=== PATIENT | male | born 1965 | race Caucasian/White ===

== ENCOUNTER 2021-11-01 21:06 | Observation (INO) | payer OTHER ==
[2021-11-01 21:57] LABS: #Eosinphils 0.2 10x3/uL (0.0-0.5); #Monocytes 0.7 10x3/uL (0.0-1.1); #Neutrophils 5.2 10x3/uL (1.5-8.4); %Basophils 0.5 % (0.0-2.0); %Eosinophils 2.3 % (0.0-6.0); %Lymphocytes 26.8 % (18.0-47.0); %Monocytes 8.3 % (0.0-10.0); %Neutrophils 61.9 % (40.0-75.0); Hemoglobin 11.7 g/dL (13.5-17.5); Mean Corpuscular HGB CONC 32.6 g/dL (32.0-36.0); Mean Corpuscular Hemoglobin 28.5 pg (27.0-33.0); Mean Corpuscular Volume 87.3 fl (81.2-95.1); Mean Platelet Volume 8.5 fl (7.4-10.4); Platelet Count 261 10x3/uL (150-450); RBC Distribution Width 13.5 % (11.5-14.5); Red Blood Cell (RBC) Count 4.11 10x6/uL (4.32-5.72); White Blood Cell (WBC) Count 8.4 10x3/uL (3.5-10.5)
[2021-11-01 22:05] LABS: ALT (SGPT) 19 U/L (8-55); AST (SGOT) 24 U/L (5-34); Albumin 3.9 g/dL (3.5-5.0); Alkaline Phosphatase 73 U/L (40-110); Anion Gap 12 mmol/L (10-20); BUN (Urea Nitrogen) 18 mg/dL (8.4-25.7); Bilirubin, Total 0.4 mg/dL (0.2-1.2); Calc. Creatinine Clearance 0 mL/min (70-130); Calcium 8.8 mg/dL (7.8-10.44); Carbon Dioxide 31 mmol/L (22-29); Chloride 98 mmol/L (98-107); Globulin 2.5 g/dL (2.4-3.5); Glucose 109 mg/dL (70-105); Magnesium 1.8 mg/dL (1.6-2.6); Protein, Total 6.4 g/dL (6.0-8.3); Sodium 138 mmol/L (136-145)
[2021-11-01] MEDS ORDERED: Aspirin 325 MG TAB ONE (22:17)
[2021-11-01 22:41] LABS: Bilirubin Neg (Negative); Blood, Urine Negative (Negative); Clarity Clear (Clear); Glucose, Urine (Dipstick) Normal (Negative); Ketone, Urine Negative (Negative); Leukocyte 25 (Negative); Nitrite Negative (Negative); Protein, Urine (Dipstick) Negative (Neg-Trace); Specific Gravity, Urine 1.005 (1.002-1.036)
[2021-11-01 22:52] LABS: Bacteria/HPF None Seen HPF (None Seen); RBC/HPF 0-3 HPF (0-3); Squamous Epithelial 0-3 HPF (0-3); WBC/HPF 0-3 HPF (0-3)
[2021-11-02] MEDS ORDERED: Calcium Carbonate 500 MG ChewTAB PO PRN (00:08)
[2021-11-02] MEDS ORDERED: Senokot S 8.6-50 MG TAB PO PRN (00:08)
[2021-11-02] MEDS ORDERED: Acetaminophen 325 MG TAB PO PRN (00:08)
[2021-11-02] MEDS ORDERED: Zolpidem Tartrate 5 MG TAB PO PRN (00:08)
[2021-11-02] MEDS ORDERED: Ondansetron PF 4 MG/2 ML Vial IVP PRN (00:08)
[2021-11-02] MEDS ORDERED: Potassium Chloride 20 MEQ TAB PO SCH ×2 (00:30→02:00)
[2021-11-02] MEDS ORDERED: Potassium Chloride 20 MEQ in Premix Bag 1 BAG IVPB SCH ×2 (00:30→02:00)
[2021-11-02 01:47] VITALS: BMI 41.8
[2021-11-02] MEDS ORDERED: Potassium Chloride 20 MEQ/100 ML PREMIX BAG ONE ×2 (02:05→02:06)
[2021-11-02 05:00] LABS: Anion Gap 11 mmol/L (10-20); BUN (Urea Nitrogen) 19 mg/dL (8.4-25.7); Calc. Creatinine Clearance 142 mL/min (70-130); Calcium 8.7 mg/dL (7.8-10.44); Carbon Dioxide 32 mmol/L (22-29); Cardiac Risk 3.3 (Less than 4.5); Chloride 101 mmol/L (98-107); Cholesterol 134 mg/dl (< 200 Desired); Glucose 119 mg/dL (70-105); HDL Cholesterol 41 mg/dL (>60 Neg Risk); LDL Cholesterol, Calculated 68 mg/dL; Magnesium 1.9 mg/dL (1.6-2.6); Potassium 3.2 mmol/L (3.5-5.1); Sodium 141 mmol/L (136-145); Triglycerides 124 mg/dL (Less than 150)
[2021-11-02] MEDS ORDERED: Levothyroxine Sodium 75 MCG TAB PO SCH (06:00)
[2021-11-02] MEDS ORDERED: Gabapentin 300 MG CAP PO SCH (09:00)
[2021-11-02] MEDS ORDERED: Potassium Chloride 10 MEQ TAB PO SCH (09:00)
[2021-11-02] MEDS ORDERED: Venlafaxine HCl XR 75 MG CAP PO SCH (09:00)
[2021-11-02] MEDS ORDERED: Oxybutynin ER 5 MG TAB PO SCH (09:00)
[2021-11-02] MEDS ORDERED: Aspirin 81 mg Enteric Coated Tablet PO SCH (09:00)
[2021-11-02] MEDS ORDERED: Enoxaparin Sodium 40 MG/0.4 ML SYRINGE SC SCH (09:00)
[2021-11-02] MEDS ORDERED: OXcarbazepine 300 MG TAB PO SCH (09:00)
[2021-11-02] MEDS ORDERED: Clopidogrel Bisulfate 75 MG TAB PO SCH (09:00)
[2021-11-02 11:18] VITALS: TEMP 98.7
[2021-11-02 13:02] LABS: Hemoglobin A1c 5.8 % (4.0-6.0)
[2021-11-02 13:10] VITALS: BP 143/87
[2021-11-02] MEDS ORDERED: Atorvastatin Calcium 40 MG TAB PO SCH (21:00)
[2021-11-03 02:55] LABS: SARS-CoV-2 PCR by NAA Not Detected (NotDetected)
== END 2021-11-02 14:34 | disposition home or self-care (01) ==
LOC: CSHERS 21:06 → UNDOADMOB 21:07 → CSHTELE 21:07
PROVIDERS: ADMIT Student in an Organized Health Care Education/Training Program; ATTEND Internal Medicine
DX: I63.9 Cerebral infarction, unspecified (principal); R29.810 Facial weakness; I25.10 Atherosclerotic heart disease of native coronary artery without angina pectoris; I10 Essential (primary) hypertension; E78.5 Hyperlipidemia, unspecified; Z95.1 Presence of aortocoronary bypass graft; Z95.5 Presence of coronary angioplasty implant and graft; G40.909 Epilepsy, unspecified, not intractable, without status epilepticus; G47.33 Obstructive sleep apnea (adult) (pediatric); Z79.899 Other long term (current) drug therapy; Z79.82 Long term (current) use of aspirin; Z87.891 Personal history of nicotine dependence; F41.9 Anxiety disorder, unspecified; E87.6 Hypokalemia; Z20.822 Contact with and (suspected) exposure to COVID-19
CPT/HCPCS: 36415; 70450; 70496; 70498; 70551; 80048; 80053; 80061; 81003; 81015; 83036; 83735; 84439; 84443; 84484; 85025; 93005; 93306; 93880; G0378; J1650; J3480; U0003; U0005

== ENCOUNTER 2022-08-20 14:39 | Emergency (ER) | payer OTHER ==
[~2022-08-20 14:39] MED LIST: Iopamidol 300 61% 100 ML VIAL FS ONE
[2022-08-20] MEDS ORDERED: Morphine 4 MG/ML VIAL ONE (15:00)
[2022-08-20 15:47] LABS: #Eosinphils 0.2 10x3/uL (0.0-0.5); #Monocytes 0.6 10x3/uL (0.0-1.1); #Neutrophils 4.2 10x3/uL (1.5-8.4); %Basophils 0.6 % (0.0-2.0); %Eosinophils 3.6 % (0.0-6.0); %Lymphocytes 23.3 % (18.0-47.0); %Monocytes 8.6 % (0.0-10.0); %Neutrophils 63.6 % (40.0-75.0); Hemoglobin 10.7 g/dL (13.5-17.5); Mean Corpuscular HGB CONC 32.9 g/dL (32.0-36.0); Mean Corpuscular Hemoglobin 28.8 pg (27.0-33.0); Mean Corpuscular Volume 87.4 fl (81.2-95.1); Mean Platelet Volume 8.5 fl (7.4-10.4); Platelet Count 222 10x3/uL (150-450); RBC Distribution Width 14.8 % (11.5-14.5); Red Blood Cell (RBC) Count 3.72 10x6/uL (4.32-5.72); White Blood Cell (WBC) Count 6.6 10x3/uL (3.5-10.5)
[2022-08-20 15:56] LABS: ALT (SGPT) 14 U/L (8-55); AST (SGOT) 16 U/L (5-34); Albumin 3.4 g/dL (3.5-5.0); Alkaline Phosphatase 72 U/L (40-110); Anion Gap 10 mmol/L (10-20); BUN (Urea Nitrogen) 19 mg/dL (8.4-25.7); Bilirubin, Total 0.5 mg/dL (0.2-1.2); Calc. Creatinine Clearance 0 mL/min (70-130); Calcium 8.5 mg/dL (7.8-10.44); Carbon Dioxide 29 mmol/L (22-29); Chloride 103 mmol/L (98-107); Estimated GFR 106; Globulin 2.2 g/dL (2.4-3.5); Glucose 108 mg/dL (70-105); Potassium 3.8 mmol/L (3.5-5.1); Protein, Total 5.6 g/dL (6.0-8.3); Sodium 138 mmol/L (136-145)
== END 2022-08-20 16:38 | disposition home or self-care (01) ==
LOC: CSHERS 14:39
DX: S20.212A Contusion of left front wall of thorax, initial encounter (principal); I25.2 Old myocardial infarction; I10 Essential (primary) hypertension; I25.10 Atherosclerotic heart disease of native coronary artery without angina pectoris; G51.0 Bell's palsy; V23.49XA Other motorcycle driver injured in collision with car, pick-up truck or van in traffic accident, initial encounter
CPT/HCPCS: 70450; 71260; 72125; 74177; 80053; 85025; 93005; 96374; J2270; Q9967

== ENCOUNTER 2022-08-26 09:17 | Emergency (ER) | payer OTHER ==
[2022-08-26] MEDS ORDERED: Ketorolac Tromethamine 30 MG/ML VIAL ONE (11:25)
== END 2022-08-26 11:55 | disposition home or self-care (01) ==
LOC: CSHERS 09:17
DX: S20.212A Contusion of left front wall of thorax, initial encounter (principal); S70.02XA Contusion of left hip, initial encounter; I25.2 Old myocardial infarction; I10 Essential (primary) hypertension; G40.409 Other generalized epilepsy and epileptic syndromes, not intractable, without status epilepticus; I25.10 Atherosclerotic heart disease of native coronary artery without angina pectoris; G51.0 Bell's palsy; V29.99XA Rider (driver) (passenger) of other motorcycle injured in unspecified traffic accident, initial encounter; Z95.5 Presence of coronary angioplasty implant and graft
CPT/HCPCS: 93005; 96372; J1885

== ENCOUNTER 2022-10-12 10:01 | Outpatient (CLI) | payer OTHER | END 2022-10-12 10:02 | disposition home or self-care (01) | LOC: CSHMRI 10:01 | PROVIDERS: ATTEND General Practice | DX: M67.912 Unspecified disorder of synovium and tendon, left shoulder (principal); M19.012 Primary osteoarthritis, left shoulder; M75.122 Complete rotator cuff tear or rupture of left shoulder, not specified as traumatic ==

== ENCOUNTER 2023-03-13 11:46 | Observation (INO) | payer OTHER, SELFPAY ==
[2023-03-13] MEDS ORDERED: Aspirin Chewable 81 MG TAB ONE (11:57)
[2023-03-13 13:02] LABS: #Eosinphils 0.2 10x3/uL (0.0-0.5); #Monocytes 0.8 10x3/uL (0.0-1.1); #Neutrophils 6.5 10x3/uL (1.5-8.4); %Basophils 0.4 % (0.0-2.0); %Eosinophils 1.7 % (0.0-6.0); %Lymphocytes 22.4 % (18.0-47.0); %Monocytes 8.6 % (0.0-10.0); %Neutrophils 66.6 % (40.0-75.0); Mean Corpuscular HGB CONC 32.2 g/dL (32.0-36.0); Mean Corpuscular Hemoglobin 27.7 pg (27.0-33.0); Mean Corpuscular Volume 86.1 fl (81.2-95.1); Mean Platelet Volume 8.6 fl (7.4-10.4); Platelet Count 312 10x3/uL (150-450); RBC Distribution Width 14.6 % (11.5-14.5); Red Blood Cell (RBC) Count 4.33 10x6/uL (4.32-5.72); White Blood Cell (WBC) Count 9.7 10x3/uL (3.5-10.5)
[2023-03-13] MEDS ORDERED: Nitroglycerin 0.4 MG TAB 1 EACH ONE (13:13)
[2023-03-13 13:15] LABS: ALT (SGPT) 22 U/L (8-55); AST (SGOT) 21 U/L (5-34); Albumin 4.1 g/dL (3.5-5.0); Alkaline Phosphatase 71 U/L (40-110); Anion Gap 13 mmol/L (10-20); BUN (Urea Nitrogen) 18 mg/dL (8.4-25.7); Bilirubin, Total 0.7 mg/dL (0.2-1.2); CK (CPK) 214 U/L (30-200); Calc. Creatinine Clearance 0 mL/min (70-130); Calcium 8.7 mg/dL (7.8-10.44); Carbon Dioxide 30 mmol/L (22-29); Chloride 100 mmol/L (98-107); Estimated GFR 100; Globulin 2.5 g/dL (2.4-3.5); Glucose 110 mg/dL (70-105); Lipase 17 U/L (8-78); Magnesium 2.1 mg/dL (1.6-2.6); Potassium 3.8 mmol/L (3.5-5.1); Protein, Total 6.6 g/dL (6.0-8.3); Sodium 139 mmol/L (136-145)
[2023-03-13] MEDS ORDERED: Fentanyl 100 MCG/2 ML VIAL ONE ×2 (13:26→16:04)
[2023-03-13 15:49] LABS: Troponin I Less than 0.010 ng/mL (< 0.028)
[2023-03-13] MEDS ORDERED: Morphine 4 MG/ML VIAL SLOW IVP PRN (16:42)
[2023-03-13 18:08] VITALS: BMI 41.9
[2023-03-13 19:14] LABS: Troponin I 0.011 ng/mL (< 0.028)
[2023-03-13] MEDS: Carvedilol 6.25 MG TAB PO SCH (20:39)
[2023-03-13] MEDS: Gabapentin 400 MG CAP PO SCH (20:39)
[2023-03-13] MEDS ORDERED: Tamsulosin HCl 0.4 MG CAP PO SCH (21:00)
[2023-03-13] MEDS ORDERED: Atorvastatin Calcium 40 MG TAB PO SCH (21:00)
[2023-03-13] MEDS ORDERED: Venlafaxine HCl XR 75 MG CAP PO SCH (21:00)
[2023-03-13 22:12] LABS: Troponin I Less than 0.010 ng/mL (< 0.028)
[2023-03-14 05:26] LABS: #Eosinphils 0.3 10x3/uL (0.0-0.5); #Monocytes 0.7 10x3/uL (0.0-1.1); %Basophils 0.4 % (0.0-2.0); %Eosinophils 3.2 % (0.0-6.0); %Lymphocytes 28.5 % (18.0-47.0); %Monocytes 8.2 % (0.0-10.0); %Neutrophils 59.3 % (40.0-75.0); Hemoglobin 11.6 g/dL (13.5-17.5); Mean Corpuscular HGB CONC 32.2 g/dL (32.0-36.0); Mean Corpuscular Hemoglobin 27.6 pg (27.0-33.0); Mean Corpuscular Volume 85.7 fl (81.2-95.1); Mean Platelet Volume 8.7 fl (7.4-10.4); Platelet Count 262 10x3/uL (150-450); RBC Distribution Width 14.6 % (11.5-14.5); White Blood Cell (WBC) Count 8.4 10x3/uL (3.5-10.5)
[2023-03-14 05:46] LABS: Anion Gap 12 mmol/L (10-20); BUN (Urea Nitrogen) 15 mg/dL (8.4-25.7); Calc. Creatinine Clearance 169 mL/min (70-130); Calcium 8.6 mg/dL (7.8-10.44); Carbon Dioxide 28 mmol/L (22-29); Chloride 103 mmol/L (98-107); Estimated GFR 104; Glucose 98 mg/dL (70-105); Potassium 3.4 mmol/L (3.5-5.1); Sodium 140 mmol/L (136-145)
[2023-03-14] MEDS ORDERED: Levothyroxine Sodium 75 MCG TAB PO SCH (06:00)
[2023-03-14] MEDS ORDERED: Calcium Carbonate 500 MG ChewTAB PO PRN (07:09)
[2023-03-14] MEDS: Carvedilol 6.25 MG TAB PO SCH ×2 (08:35→17:10)
[2023-03-14] MEDS: Gabapentin 400 MG CAP PO SCH ×2 (08:37→15:25)
[2023-03-14 08:40] VITALS: TEMP 98.2
[2023-03-14] MEDS ORDERED: Non-Formulary Medication 1 EACH (Potassium [Potassium] 99 MG Tablet) PO SCH (09:00)
[2023-03-14] MEDS ORDERED: Venlafaxine HCl XR 75 MG CAP PO SCH ×2 (09:00)
[2023-03-14] MEDS ORDERED: OXcarbazepine 300 MG TAB PO SCH (09:00)
[2023-03-14] MEDS ORDERED: Chlorthalidone 25 MG TAB PO SCH (09:00)
[2023-03-14] MEDS ORDERED: Aspirin 81 mg Enteric Coated Tablet PO SCH (09:00)
[2023-03-14] MEDS ORDERED: Oxybutynin ER 5 MG TAB PO SCH (09:00)
[2023-03-14] MEDS ORDERED: Amlodipine 10 MG TAB PO SCH (09:00)
[2023-03-14 13:28] LABS: Hemoglobin A1c 5.6 % (4.0-6.0)
[2023-03-14 19:10] VITALS: BP 121/67
[2023-03-14] MEDS ORDERED: Lisinopril 20 MG TAB PO SCH (21:00)
== END 2023-03-14 18:50 | disposition short-term general hospital (02) ==
LOC: CSHERS 11:46 → SUATTDRO 11:46 → CSHTELE 17:13
PROVIDERS: ADMIT Family Medicine; ATTEND Emergency Medicine
DX: I25.10 Atherosclerotic heart disease of native coronary artery without angina pectoris (principal); I10 Essential (primary) hypertension; E03.9 Hypothyroidism, unspecified; I25.2 Old myocardial infarction; Z88.1 Allergy status to other antibiotic agents; Z88.8 Allergy status to other drugs, medicaments and biological substances; Z79.82 Long term (current) use of aspirin; Z79.899 Other long term (current) drug therapy; Z79.890 Hormone replacement therapy; G40.909 Epilepsy, unspecified, not intractable, without status epilepticus; Z90.49 Acquired absence of other specified parts of digestive tract; Z90.89 Acquired absence of other organs
CPT/HCPCS: 36415; 71045; 80048; 80053; 82550; 83036; 83690; 83735; 83880; 84443; 84484; 85025; 85379; 93005; 93010; 94760; 96361; 96372; 96374; 96376; G0378; J1650; J3010

== ENCOUNTER 2023-06-26 21:45 | Emergency (ER) | payer SELFPAY ==
[2023-06-26 23:08] LABS: INR-International Normal Ratio 1.2; PTT 28.4 sec (22.0-33.0); Prothrombin Time 12.5 sec (9.5-12.1)
[2023-06-26 23:11] LABS: #Eosinphils 0.2 10x3/uL (0.0-0.5); #Monocytes 0.6 10x3/uL (0.0-1.1); #Neutrophils 5.6 10x3/uL (1.5-8.4); %Basophils 0.2 % (0.0-2.0); %Eosinophils 2.6 % (0.0-6.0); %Lymphocytes 26.8 % (18.0-47.0); %Monocytes 6.8 % (0.0-10.0); %Neutrophils 63.3 % (40.0-75.0); ALT (SGPT) 25 U/L (8-55); AST (SGOT) 24 U/L (5-34); Albumin 3.8 g/dL (3.5-5.0); Alkaline Phosphatase 74 U/L (40-110); Anion Gap 14 mmol/L (10-20); BUN (Urea Nitrogen) 23 mg/dL (8.4-25.7); Bilirubin, Total 0.4 mg/dL (0.2-1.2); Calc. Creatinine Clearance 0 mL/min (70-130); Calcium 8.5 mg/dL (7.8-10.44); Carbon Dioxide 28 mmol/L (22-29); Chloride 100 mmol/L (98-107); Estimated GFR 85; Globulin 2.6 g/dL (2.4-3.5); Glucose 98 mg/dL (70-105); Hematocrit 35.5 % (38.8-50.0); Hemoglobin 11.5 g/dL (13.5-17.5); Lipase 49 U/L (8-78); Mean Corpuscular HGB CONC 32.4 g/dL (32.0-36.0); Mean Corpuscular Hemoglobin 28.1 pg (27.0-33.0); Mean Corpuscular Volume 86.8 fl (81.2-95.1); Mean Platelet Volume 8.9 fl (7.4-10.4); Platelet Count 261 10x3/uL (150-450); Protein, Total 6.4 g/dL (6.0-8.3); RBC Distribution Width 14.6 % (11.5-14.5); Red Blood Cell (RBC) Count 4.09 10x6/uL (4.32-5.72); Sodium 139 mmol/L (136-145); White Blood Cell (WBC) Count 8.8 10x3/uL (3.5-10.5)
[2023-06-26 23:35] LABS: Bilirubin Neg (Negative); Blood, Urine 10 (Negative); Clarity Clear (Clear); Glucose, Urine (Dipstick) Normal (Negative); Ketone, Urine Negative (Negative); Leukocyte 25 (Negative); Nitrite Negative (Negative); Protein, Urine (Dipstick) Negative (Neg-Trace); Specific Gravity, Urine 1.015 (1.005-1.030); Urobilinogen Normal mg/dL (Less than 2); pH, Urine 6.5 (5.0-9.0)
[2023-06-26 23:41] LABS: Bacteria/HPF None Seen HPF (None Seen); CAUTI Indications for Culture Dysuria,urgency,freq; RBC/HPF 0-3 HPF (0-3); Squamous Epithelial 0-3 HPF (0-3); WBC/HPF 0-3 HPF (0-3)
[2023-06-26 23:43] LABS: Urine Culture Reflex No No
== END 2023-06-27 01:20 | disposition home or self-care (01) ==
LOC: CSHERS 21:45
DX: K62.5 Hemorrhage of anus and rectum (principal); K60.2 Anal fissure, unspecified; N28.1 Cyst of kidney, acquired; N13.2 Hydronephrosis with renal and ureteral calculous obstruction; I25.10 Atherosclerotic heart disease of native coronary artery without angina pectoris; I10 Essential (primary) hypertension; F17.290 Nicotine dependence, other tobacco product, uncomplicated; Z86.73 Personal history of transient ischemic attack (TIA), and cerebral infarction without residual deficits
CPT/HCPCS: 36415; 71045; 74177; 80053; 81001; 83690; 85025; 85610; 85730; 86850; 86900; 86901; 93005; Q9967

== ENCOUNTER 2024-06-04 08:55 | Outpatient (CLI) | payer OTHER ==
[2024-06-04] MEDS ORDERED: Iopamidol 370 76% 100 ML VIAL ONE (10:17)
== END 2024-06-04 08:56 | disposition home or self-care (01) ==
LOC: CSHCT 08:55
PROVIDERS: ATTEND Internal Medicine Critical Care Medicine
DX: R06.02 Shortness of breath (principal); R91.1 Solitary pulmonary nodule; N28.1 Cyst of kidney, acquired
CPT/HCPCS: 71275; Q9967

== ENCOUNTER 2024-06-28 13:03 | Outpatient (CLI) | payer OTHER | END 2024-06-28 13:04 | disposition home or self-care (01) | LOC: CSHRAD 13:03 | PROVIDERS: ATTEND Family Medicine | DX: S83.92XA Sprain of unspecified site of left knee, initial encounter (principal); M17.0 Bilateral primary osteoarthritis of knee ==

== ENCOUNTER 2024-10-01 15:32 | Outpatient (CLI) | payer OTHER | END 2024-10-01 15:33 | disposition home or self-care (01) | LOC: CSHCP 15:32 | PROVIDERS: ATTEND Internal Medicine Critical Care Medicine | DX: R06.02 Shortness of breath (principal) | CPT/HCPCS: 94010; 94726; 94729; 94760 ==

== ENCOUNTER 2025-08-12 09:38 | Outpatient (CLI) | payer OTHER | END 2025-08-12 09:39 | disposition home or self-care (01) | LOC: CSHULT 09:38 | PROVIDERS: ATTEND Urology | DX: N13.2 Hydronephrosis with renal and ureteral calculous obstruction (principal); N28.1 Cyst of kidney, acquired | CPT/HCPCS: 76770 ==